=== PATIENT | female | born 1990 | race Caucasian/White ===

== ENCOUNTER 2016-07-04 10:39 | Emergency (ER) | payer OTHER ==
[~2016-07-04] VITALS: Ht 160 cm; Wt 50.0 kg
[2016-07-04 10:40] VITALS: BP 139/89; PULSE 60; RESP 18; TEMP 98.3; O2SAT 96
[2016-07-04] MEDS ORDERED: SODIUM CHLOR 0.9% 1000 ML INJ 1,000 ML IV SCH (10:56)
[2016-07-04] MEDS ORDERED: PREN29TA PO (10:57)
[2016-07-04] MEDS ORDERED: ONDANSETRON HCL 4 MG/2 ML VIAL IVP ONE (11:00)
[2016-07-04] MEDS ORDERED: SODIUM CHLORIDE 0.9% FLUSH 10 ML FLUSH IV FLUSH PRN (11:00)
--- NOTE | 2016-07-04 11:08 | PD ---
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 She states that she feels tired and uneasy, gets abdominal cramping pains when she gets the vomiting but denies any current pain. She denies any fevers, chest pains, shortness of breath, or any other symptoms. Modifying Factors: None Associated Signs & Symptoms: Nausea, vomiting, abdominal cramping pain, diarrhea Risk Factors: PFSH Past Medical History Medical History: Denies Significant Hx ?: LMP: APR 2016 Past Surgical History Surgical History: No Previous Surgery Social History Alcohol Use: No Tobacco Use: No Substance Use: No Allergies-Medications (Allergen,Severity, Reaction): Coded Allergies: No Known Allergies (Unverified , 07/04/16) Reported Meds & Prescriptions Reported Meds & Active Scripts Active Reported Plus Iron 29-1 mg ( Vit-Iron Carbonyl) 1 Tab Tab 1 Tab PO DAILY Review of Systems Except as stated in HPI: all other systems reviewed are Neg Physical Exam Narrative GENERAL: Young white female patient who is currently in mild distress secondary to vomiting. Awake and oriented 3. SKIN: Warm and dry. HEAD: Atraumatic. Normocephalic. EYES: Pupils equal and round. No scleral icterus. No injection or drainage. ENT: No nasal bleeding or discharge. Mucous membranes pink and moist. NECK: Trachea midline. No JVD. CARDIOVASCULAR: Regular rate and rhythm. No murmur appreciated. RESPIRATORY: No accessory muscle use. Clear to auscultation. Breath sounds equal bilaterally. GASTROINTESTINAL: Abdomen soft, non-tender, nondistended. Hepatic and splenic margins not palpable. Benign. MUSCULOSKELETAL: No obvious deformities. No clubbing. No cyanosis. No edema. NEUROLOGICAL: Awake and alert. No obvious cranial nerve deficits. Motor grossly within normal limits. Normal speech. PSYCHIATRIC: Appropriate mood and affect; insight and judgment normal. Data Data Last Documented VS Vital Signs Date Time Temp Pulse Resp B/P Pulse Ox O2 Delivery O2 Flow Rate FiO2 07/04/16 11:12 16 100 Room Air 07/04/16 10:40 98.3 60 139/89 Orders Beta Hcg (Quant/Titer) (07/04/16 10:56) Complete Blood Count With Diff (07/04/16 10:56) Comprehensive Metabolic Panel (07/04/16 10:56) Lipase (07/04/16 10:56) Urinalysis - C+S If Indicated (07/04/16 10:56) Iv Access Insert/Monitor (07/04/16 10:56) Ecg Monitoring (07/04/16 10:56) Oximetry (07/04/16 10:56) Ondansetron Inj (Zofran Inj) (07/04/16 11:00) Sodium Chlor 0.9% 1000 Ml Inj (Ns 1000 M (07/04/16 10:56) Sodium Chloride 0.9% Flush (Ns Flush) (07/04/16 11:00) Labs Laboratory Tests Test 07/04/16 07/04/16 11:45 12:10 White Blood Count 17.6 TH/MM3 Red Blood Count 4.62 MIL/MM3 Hemoglobin 14.0 GM/DL Hematocrit 41.3 % Mean Corpuscular Volume 89.3 FL Mean Corpuscular Hemoglobin 30.3 PG Mean Corpuscular Hemoglobin 33.9 % Concent Red Cell Distribution Width 12.5 % Platelet Count 347 TH/MM3 Mean Platelet Volume 8.7 FL Neutrophils (%) (Auto) 84.5 % Lymphocytes (%) (Auto) 10.8 % Monocytes (%) (Auto) 4.3 % Eosinophils (%) (Auto) 0.0 % Basophils (%) (Auto) 0.4 % Neutrophils # (Auto) 14.9 TH/MM3 Lymphocytes # (Auto) 1.9 TH/MM3 Monocytes # (Auto) 0.7 TH/MM3 Eosinophils # (Auto) 0.0 TH/MM3 Basophils # (Auto) 0.1 TH/MM3 CBC Comment DIFF FINAL Differential Comment Sodium Level 134 MEQ/L Potassium Level 3.2 MEQ/L Chloride Level 95 MEQ/L Carbon Dioxide Level 29.3 MEQ/L Anion Gap 10 MEQ/L Blood Urea Nitrogen 14 MG/DL Creatinine 0.80 MG/DL Estimat Glomerular Filtration 89 ML/MIN Rate Random Glucose 115 MG/DL Calcium Level 8.9 MG/DL Total Bilirubin 0.4 MG/DL Aspartate Amino Transf 15 U/L (AST/SGOT) Alanine Aminotransferase 22 U/L (ALT/SGPT) Alkaline Phosphatase 52 U/L Total Protein 7.7 GM/DL Albumin 3.5 GM/DL Lipase 197 U/L Human Chorionic Gonadotropin, [id number] MIU/ML Quant Urine Color YELLOW Urine Turbidity HAZY Urine pH 6.5 Urine Specific [place] 1.029 Urine Protein 30 mg/dL Urine Glucose (UA) NEG mg/dL Urine Ketones NEG mg/dL Urine Occult Blood NEG Urine Nitrite NEG Urine Bilirubin NEG Urine Urobilinogen LESS THAN 2.0 MG/DL Urine Leukocyte Esterase LARGE Urine RBC 13 /hpf Urine WBC 4 /hpf Urine Squamous Epithelial 6 /hpf Cells Urine Bacteria OCC /hpf Urine Mucus FEW /lpf Microscopic Urinalysis Comment CULT NOT INDICATED MDM Medical Decision Making Medical Screen Exam Complete: Yes Emergency Medical Condition: Yes Medical Record Reviewed: Yes Interpretation(s) Laboratory Tests Test 07/04/16 07/04/16 11:45 12:10 White Blood Count 17.6 TH/MM3 (4.0-11.0) Neutrophils (%) (Auto) 84.5 % (16.0-70.0) Neutrophils # (Auto) 14.9 TH/MM3 (1.8-7.7) Sodium Level 134 MEQ/L (136-145) Potassium Level 3.2 MEQ/L (3.5-5.1) Chloride Level 95 MEQ/L (98-107) Random Glucose 115 MG/DL (74-106) Human Chorionic Gonadotropin, [id number] MIU/ML Quant (0-5) Urine Turbidity HAZY (CLEAR) Urine Protein 30 mg/dL (NEG-TRACE) Urine Leukocyte Esterase LARGE (NEG) Urine RBC 13 /hpf (0-3) Urine Bacteria OCC /hpf (NONE) Urine Mucus FEW /lpf (OCC) Differential Diagnosis Nausea, vomiting, diarrhea, abdominal cramping painsgastroenteritis versus hyperemesis gravidarum versus metabolic issues versus dehydration Narrative Course Abdomen is benign and I do not suspect an acute intra-abdominal process. She was given IV fluids and lab work was done. Lab work did not show significant metabolic issues or significant dehydration at this time. She was given Zofran and reports feeling improved on reevaluation at 12:45 PM. Abdomen is benign and I do not suspect an acute intra-abdominal process. Leukocytosis was noted and I have talked to the patient regarding the finding as well. She does not have any significant signs of sepsis, is afebrile, and at this point, I have talked to her about the risks and benefits of doing a CAT scan of the abdomen while she is . I think her risk of having an acute intra-abdominal process should be low considering physical exam findings currently. However, there is does not 0 and I have talked to the patient as well and she states understanding. She is electing not to get any further scanning done at this time. Return for any worsening in symptoms as necessary. The plan was discussed with her and she states understanding. She will need to follow-up with her [employer] regarding current issue. Diagnosis Primary Impression: Hyperemesis gravidarum Med/Other Pt SpecificInfo: Prescription(s) given Scripts Ondansetron Odt (Zofran Odt)4 Mg Tab4 Mg SL Q6HR PRN (Nausea/Vomiting) #7 TAB Ref 0 Prov:Jesus Sanabria MD 07/04/16 Disposition: 01 DISCHARGE HOME Condition: Stable Jesus Sanabria MD Jul 04, 2016 11:08
[2016-07-04 11:12] VITALS: RESP 16; O2SAT 100
[2016-07-04 12:04] LABS: AUTOMATED NEUTROPHIL # 14.9 TH/MM3 (1.8-7.7); BASOPHIL # 0.1 TH/MM3 (0-0.2); BASOPHIL % 0.4 % (0.0-2.0); HEMATOCRIT 41.3 % (35.0-46.0); HEMO FLAGS DIFF FINAL; LYMPH % 10.8 % (9.0-44.0); LYMPHOCYTE # 1.9 TH/MM3 (1.0-4.8); MEAN CELL VOLUME 89.3 FL (80.0-100.0); MEAN CORPUSCULAR HEMOGLOBIN 30.3 PG (27.0-34.0); MEAN CORPUSCULAR HGB CONC 33.9 % (32.0-36.0); MONO % 4.3 % (0.0-8.0); NEUT % 84.5 % (16.0-70.0); PLATELET COUNT 347 TH/MM3 (150-450); RED BLOOD COUNT 4.62 MIL/MM3 (4.00-5.30); RED CELL DISTRIBUTION WIDTH 12.5 % (11.6-17.2); WHITE BLOOD COUNT 17.6 TH/MM3 (4.0-11.0)
[2016-07-04 12:19] LABS: ANION GAP 10 MEQ/L (5-15); AST (GOT) 15 U/L (15-37); BICARBONATE 29.3 MEQ/L (21.0-32.0); BLOOD UREA NITROGEN 14 MG/DL (7-18); CHLORIDE 95 MEQ/L (98-107); GLOMERULAR FILTRATION RATE 89 ML/MIN (>89); POTASSIUM 3.2 MEQ/L (3.5-5.1); SODIUM (NA) 134 MEQ/L (136-145)
[2016-07-04 12:36] LABS: ALKALINE PHOSPHATASE 52 U/L (45-117); ALT (GPT) 22 U/L (10-53); BETA HCG QUANT 157604 MIU/ML (0-5); TOTAL BILIRUBIN ADULT 0.4 MG/DL (0.2-1.0)
[2016-07-04 12:39] LABS: BACTERIA, URINE OCC /hpf; BLOOD, URINE NEG (NEG); COMMENT (UR) CULT NOT INDICATED; CULTURE IF INDICATED CULT NOT INDICATED; GLUCOSE,URINE NEG (NEG); KETONE, URINE NEG (NEG); MUCUS URINE FEW /lpf (OCC); NITRITE,URINE NEG (NEG); PH, URINE 6.5 (5.0-8.5); SQUAMOUS EPITHELIAL CELL URINE 6 /hpf (0-5); URINE COLOR YELLOW (YELLW/STRAW)
[2016-07-04] MEDS ORDERED: ZOFR4TAB3 SL (12:49)
[2016-07-04] MEDS ORDERED: CEPH-460 PO (12:50)
== END 2016-07-04 13:42 | disposition home or self-care (01) ==
LOC: NEPE 10:39
DX: O21.0 Mild hyperemesis gravidarum (principal); R82.71 Bacteriuria; R19.7 Diarrhea, unspecified; R10.9 Unspecified abdominal pain; Z3A.09 9 weeks gestation of pregnancy
CPT/HCPCS: 80053; 81001; 83690; 84702; 85025; 96361; 96374; 99284; J2405; J7030